=== PATIENT | female | born 2005 | race Caucasian/White ===

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

== ENCOUNTER 2025-01-23 09:41 | Emergency (ER) | payer OTHER, SELFPAY ==
--- NOTE | ~2025-01-23 | XR_ITS ---
XR lumbar spine 2-3V Indication: low back pain X 1 MONTH, INJURY 1 MONTH AGO Comparison: None Findings: The vertebral heights are intact. No fracture or subluxation. The disc heights are intact. Soft tissues unremarkable Impression: No acute abnormality. Reviewed, dictated and finalized at location A. Impression: No acute abnormality.
[2025-01-23 09:57] VITALS: BP 134/73; PULSE 88; RESP 18; TEMP 36.6; O2SAT 98
--- OUTSIDE RECORDS SUMMARY | 2025-01-23 11:11 | XMS_ITS | Clinical Summary ---
Author Organization [facility] [employer] Address [address] [place] [address] Care Team Providers Care Case Checker Name Role Phone Cecy Cruz MD Primary Care Provider [phone] Source Comments [facility],non-owned Affiliates and Associated Physician Practices is amultiple site organization consisting of ambulatory clinics and hospital sitesin [place], [place], [place] and [place]. This disclosure is being madepursuant to the Care Everywhere program and may not contain all information available regarding this patient. Last updated 18.[facility] Allergies No known active allergies Medications * This document contains information received from the source organization and may not represent a complete record from that organization. * Be aware that medications may not be up to date on this document. Alwaysverify current medications with the patient. ferrous sulfate 325 (65 FE) MG tablet Take 1 (one) tablet by mouth once daily Week before and week of menses. Active ibuprofen (MOTRIN) 200 MG tablet Take 1 (one) tablet by mouth every 6 hours as needed for Pain Active norethindone-e thinyl estradiol-FE () 1-20 MG-MCG(24) tabletIndicati ons:Dysmenorrh ea Take 1 tablet by mouth once daily Reasons: Pain During Periods 28 tablet 9 0 Active Additional Information Patient not taking.Reported on 11/14/2022 ondansetron, disintegrating , (Zofran ODT) 4 MG tablet Take 2 (two) tablets by mouth every 6 hours as needed for Nausea/Vomiting Allow tablet to dissolve on the tongue 12 tablet 3 Active Additional Information Patient not taking.Reported on 11/14/2022 ibuprofen (Motrin) 600 MG tablet Take 1 (one) tablet by mouth every 6 hours as needed for Pain 16 tablet 3 Active Additional Information Patient not taking.Reported on 11/14/2022 hyoscyamine (Levsin) 0.125 MG IR tablet Take 1 (one) tablet by mouth every 4 hours as needed for Spasms 50 tablet 3 3 Active omeprazole (PriLOSEC) 40 MG capsule Take 1 (one) capsule by mouth once daily 30 capsule 2 3 Active vitamin D, ergocalciferol , (Drisdol) 1.25 MG (48217 UT) capsule Take 1 (one) capsule by mouth every 7 days 12 capsule 3 Active acetaminophen (Tylenol) 500 MG tablet Take 1 (one) tablet by mouth every 4 hours as needed for Fever or Pain Maximum allowable Acetaminophen amount = 4 Grams (4000 mg) / 24 hours. 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 No significant past medical history. No changes in vision, migraine headaches, hirsutism, or significant acne. No family history of bleeding disorders. 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 Differential [...] end of radius 07/29/2010 Overview (07/29/2010): 07/10/10 [facility] ER - buckle fx of left distal radius Urinary incontinence 08/30/2009 Mouth sores 08/30/2009 Resolved Problems Problem Noted Date Diagnosed Date Resolved Date Functional diarrhea 08/20/2022 09/18/19 UTI (urinary tract infection) 02/06/2010 08/20/2022 Overview (02/06/2010): 01/31/10 >100,000 col/ml E.coli Immunizations Immunization Administration Dates Next Due DTaP VACCINE IM (6wk-6yrs) 02/05/2011,,02/02/2007,08/01/2006,03/12 HEP A PEDS 2 DOSE 02/03/2008,02/02/2007 HEP B VACCINE, PED/ADOL 02/02/2007,08/01/2006,,2005 HIB BOOSTER 02/03/2008,02/02/2007,08/01/2006 ,03/24/2006 INFLUENZA A [id number] VACCINE 05/09/2009 Influenza Nasal 02/05/2011 MMR 02/05/2011,08/01/2006 [...] of Binge Drinking Not on file 07/2019 Comments No Sex and Gender Information Value Date Recorded Sex Assigned at Not on file Legal Sex 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 Gender Identity Not on file Sexual Orientation [...] 11:13 PM CDT Height 161 cm (5' 3.39) 08/20/2022 2:52 PM CDT Body Mass Index - - Plan of Treatment Health Maintenance Due Date Last Done Comments DTAP/TDAP/TD VACCINES (6 - Tdap) 2016 02/05/2011, 02/03/2008, 02/02/2007, Additional history exists HIV SCREENING 2020 HPV VACCINE (1 - 3-dose series) 2020 CHLAMYDIA/GONORRHEA SCREENING 2021 MENINGOCOCCAL (Group B) VACCINE SHARED DECISION-MAKING (1 of 2 - Standard) 2021 HEPATITIS C SCREENING 06/10/2023 DEPRESSION SCREENING 05/12/2024 COVID-19 VACCINE ( season) 2025 12/12/2020, 11/08/2020 INFLUENZA VACCINE (#1) 2025 , 03/24/2021, 02/22/2020, Additional history exists ZOSTER VACCINE (1 of 2) 2055 HEPATITIS B VACCINE Completed 02/02/2007, 08/01/2006, 03/24/2006, Additional history exists PNEUMOCOCCAL VACCINE Completed 02/02/2007, 08/01/2006, 03/24/2006 HIB VACCINE Completed 02/03/2008, 01/11, 08/01/2006, Additional history exists MENINGOCOCCAL GROUPS A/C/Y/W VACCINE Aged Out No longer eligible based on patient's age to complete this topic Insurance [facility] Care Teams Case Checker Relationship Specialty Start Date End Date Cecy Cruz MD PCP - General Pediatrics 06/16/19
[2025-01-23] MEDS: KETOROLAC 30 MG/ML VIAL (*BKC) IM (11:26)
[2025-01-23] MEDS: CYCLOBENZAPRINE HCL 10 MG TABLET PO (11:26)
--- NOTE | 2025-01-23 12:45 | ED.BACK ---
HPI - Back Pain/Injury General Chief Complaint: Back Pain/Injury Stated Complaint: back pain Time Seen by Provider: 01/23/25 11:02 History of Present Illness HPI Narrative: Patient is a 19-year-old female who presents ER with left-sided back pain radiating down her left leg. Began 1 month ago when she hurt herself picking up boxes at work. She has been on multiple rounds of steroids and has also been taking Aleve regularly. No improvement with methocarbamol. No saddle anesthesia or difficulty with urination/defecation. No fevers or chills or sweats. No recurrent injury but they are starting to have her lift boxes again at work which is causing irritation. Worse in last night while at work. She is scheduled to follow-up with a PCP and has outpatient physical therapy ordered but has not yet attended. Related Data Allergies Allergy/AdvReac Type Severity Reaction Status Date / Time No Known Allergies Allergy Verified 07/20/24 21:05 Review of Systems Constitutional: Constitutional: Reports no additional constitutional complaints Cardiovascular: Cardiovascular: Reports no additional cardiovascular complaints Respiratory: Respiratory: Reports no additional respiratory complaints Musculoskeletal: Musculoskeletal: Reports no additional musculoskeletal complaints [facility] Past Medical History Medical History (Updated 01/23/25 @ 12:50 by Carlos Eduardo Eaton MD) Healthy female adult Surgical History Surgical History (Updated 01/23/25 @ 12:50 by Carlos Eduardo Eaton MD) No pertinent past surgical history Exam Narrative: GENERAL: Well-appearing, well-nourished, and in no acute distress. HEAD: Normocephalic, atraumatic. CHEST: Clear to auscultation. No respiratory distress. HEART: Regular rate and rhythm. Normal peripheral pulses. Back: No midline tenderness but there is left paraspinal tenderness in the L4 through S1 region causing discomfort. EXTREMITIES: Normal range of motion. No edema. SKIN: Warm, dry, no rash. NEURO: Alert and oriented x3. PSYCH: Normal mood and affect. Course Course Emergency Course: Pain improved with Toradol and Flexeril. Recommend continuing Aleve at home and taking Flexeril as needed. I will give her a work lifting restriction so she can go to PT. Vital Signs Vital signs: Vital Signs Temperature 97.8 F 01/23/25 09:57 Pulse Rate 88 01/23/25 09:57 Respiratory Rate 18 01/23/25 09:57 Blood Pressure 134/73 01/23/25 09:57 Pulse Oximetry 98 01/23/25 09:57 Oxygen Delivery Room Air 01/23/25 09:57 Temperature 97.8 F 01/23/25 09:57 Pulse Rate 88 01/23/25 09:57 Respiratory Rate 18 01/23/25 09:57 Blood Pressure 134/73 01/23/25 09:57 Pulse Oximetry 98 01/23/25 09:57 Oxygen Delivery Room Air 01/23/25 09:57 MDM - Back Pain/Injury Imaging Data Radiologist's impression: ITS Impressions Lumbar Spine X-Ray 01/23/25 11:50 Impression: No acute abnormality. Discharge Plan Discharge Clinical Impression: Sciatica Patient Disposition: Home Condition: Stable Instructions: Sciatica (ED) Additional Instructions: Please return to the emergency department if you develop severe pain that is not controlled by pain medications or if you are unable to walk because of pain or weakness. Return to the emergency department immediately if you develop fevers, loss of bowel or bladder control (dribbling of urine or having accidents you wouldn't normally have), inability to urinate, numbness of your genital or anal area, or weakness/numbness of your legs or arms as these could all be signs of a serious medical emergency. Patient Language: Macedonian Prescriptions: New cyclobenzaprine 10 mg tablet 10 mg PO TID PRN (Reason: muscle spasm) Qty: 20 0RF No Action methocarbamol 750 mg tablet 750 mg PO TID PRN (Reason: muscle pain) Qty: 10 0RF Follow-up/Referrals: Mike Gonzalez [Other] - 1 Week PHYSICIAN NOT ON STAFF,NONSTAFF [Primary Care Provider] Stand Alone Forms: Work/School Release IP
== END 2025-01-23 13:00 | disposition home or self-care (01) ==
PROVIDERS: Emergency Provider Emergency Medicine
DX: M54.42 Lumbago with sciatica, left side (principal); X50.0XXA Overexertion from strenuous movement or load, initial encounter
CPT/HCPCS: 72100; 96372; 99283; A9270; J1885